=== PATIENT | female | born 1945 ===

== ENCOUNTER 2018-12-14 07:07 | Day surgery (SDC) | payer OTHER ==
[~2018-12-14 07:07] MED LIST: ATORVASTATIN CA10 MG PO; DIALYVITE 800-1 EAC2 PO; FLOVENT DISKU100 MCG IH; LEVOTHYROXINE25 MCG PO; LISINOPRIL10 MG PO; MICROZIDE12.5 MG PO; OMEPRAZOLE20 MG PO; VYZULTA5 ML OTIC
[2018-12-14] MEDS ORDERED: PERCOCET 5-3251 EACH PO (12:45)
== END 2018-12-14 15:51 | disposition home or self-care (01) ==
LOC: CIR.AMB 07:07
DX: D34 Benign neoplasm of thyroid gland (principal); E06.3 Autoimmune thyroiditis